=== PATIENT | female | born 1970 | race Caucasian/White ===

== ENCOUNTER → 2018-11-28 | Outpatient (REF) ==
--- NOTE | 2018-11-29 08:13 | REP ---
Clinical: Back pain. Technique: AP, lateral, coned-down views of the lumbosacral spine. Findings: Grade 1 anterolisthesis with chronic spondylolysis and hypertrophic facet changes at L5-S1 including endplate sclerosis and minimal disc space narrowing. Minimal endplate sclerosis with disc space narrowing and marginal spurring also identified at T12-L1. Remainder examination is age-appropriate. Impression: Focal degenerative spondylosis as described above at L5-S1 and T12-L1. Electronically Signed by Rachid Barton MD 11/29/2018 08:05 A
== END ==
LOC: M SMT 11:55
PROVIDERS: ATTEND Internal Medicine
DX: Z00.00 Encounter for general adult medical examination without abnormal findings (principal)

== ENCOUNTER → 2023-06-19 | Outpatient (REF) | LOC: M PLAIMG 15:22 | PROVIDERS: ATTEND Internal Medicine | DX: R52 Pain, unspecified (principal) ==

== ENCOUNTER → 2023-07-24 | Outpatient (REF) | LOC: M PLAIMG 10:21 | PROVIDERS: ATTEND Internal Medicine | DX: R52 Pain, unspecified (principal); M25.461 Effusion, right knee; M19.011 Primary osteoarthritis, right shoulder ==